=== PATIENT | female | born 1970 | race Caucasian/White ===

== ENCOUNTER 2016-07-07 18:03 | Emergency (ER) | payer BC ==
--- NOTE | 2016-07-07 18:36 | ERPHSYRPT ---
- History of Present Illness Time Seen by Provider: 07/07/16 18:25 Source: patient Exam Limitations: clinical condition Patient Subjective Stated Complaint: pt states she fell into a handrail on staircase this afternoon. pt c/o pain to right ribs. Triage Nursing Assessment: pt pink, warm, dry. mild swelling no bruising noted to right rib area. lung sounds clear and equal. 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 PATIENT COMPLAINS OF SEVERE RIGHT SIDED CHEST PAINS WORSE UPON INSPIRATION AND MOTION OF HER TORSO. DENIES ASSOCIATED HEAD, NECK OR BACK INJURY. Occurred: this evening Reason for Fall: lost balance, slipped Injuries/Pain Location: chest Loss of Consciousness: no loss of consciousness Quality: sharpness, stabbing Severity of Pain-Max: severe Severity of Pain-Current: severe Modifying Factors: Improves With: movement, other (INSPIRATION) Associated Symptoms (Fall): other (PAIN UPON INSPIRATION) Allergies/Adverse Reactions: nitroglycerin Allergy (Severe, Verified 07/07/16 18:22) LOW BP morphine Allergy (Mild, Verified 07/07/16 18:22) DOES NOT DO ANYTHING Home Medications: Venlafaxine HCl ER 37.5 mg [Effexor ER 37.5 MG] 37.5 mg PO DAILY 10/14/15 [History] Hx Tetanus, Diphtheria Vaccination/Date Given: Yes (up to date) Hx Influenza Vaccination/Date Given: No Hx Pneumococcal Vaccination/Date Given: No Immunizations Up to Date: Yes - Review of Systems Constitutional: No Fever, No Chills Eyes: No Symptoms Ears, Nose, & Throat: No Symptoms Respiratory: No Symptoms, No Cough, No Dyspnea Cardiac: Chest Pain, No Edema, No Syncope Abdominal/Gastrointestinal: No Symptoms, No Abdominal Pain, No Nausea, No Vomiting, No Diarrhea Genitourinary Symptoms: No Symptoms, No Dysuria Musculoskeletal: No Symptoms, No Back Pain, No Neck Pain Skin: No Symptoms, No Rash Neurological: No Dizziness, No Focal Weakness, No Sensory Changes Psychological: No Symptoms Endocrine: No Symptoms All Other Systems: Reviewed and Negative - Past Medical History Pertinent Past Medical History: Yes Neurological History: No Pertinent History ENT History: No Pertinent History Cardiac History: High Cholesterol Respiratory History: Other Endocrine Medical History: No Pertinent History Musculoskeletal History: Other GI Medical History: No Pertinent History History: No Pertinent History Psycho-Social History: No Pertinent History Female Reproductive Disorders: No Pertinent History Other Medical History: histiocytosis - NOT IN REMISSION - Past Surgical History Past Surgical History: Yes Neuro Surgical History: No Pertinent History Cardiac: No Pertinent History Respiratory: No Pertinent History, Other Gastrointestinal: No Pertinent History Genitourinary: No Pertinent History Musculoskeletal: No Pertinent History Female Surgical History: Tubal Ligation Other Surgical History: rremoval of rt rib - Social History Smoking Status: Current every day smoker How long have you smoked: 30 Exposure to second hand smoke: Yes Drug Use: none Patient Lives Alone: No - Female History Hx Last Menstrual Period: june 14 2016 Hx Now: No - Nursing Vital Signs Nursing Vital Signs: Initial Vital Signs Temperature 98.3 F Temperature Source Oral Pulse Rate 99 Respiratory Rate 16 Blood Pressure [Right Arm] 119/87 Pain Intensity 8 - [place] Coma Score Best Eye Response (Burak): (4) open spontaneously Best Verbal Response (Burak): (5) oriented Best Motor Response ([place]ands): (6) obeys commands Burak Total: 15 - Physical Exam General Appearance: mild distress Head Injury: no evidence of injury Eye Exam: PERRL/EOMI ENT Exam: airway nml Neck Exam: supple, full range of motion, normal inspection Respiratory/Chest Exam: chest tenderness (MARKED RIGHT LATERAL RIB TENDERNESS 5TH TO 8TH RIBS, NO CREPITUS OR ECCHYMOSIS) Cardiovascular Exam: normal heart sounds, regular rate/rhythm Gastrointestinal Exam: soft, normal bowel sounds Back Exam: normal inspection, normal range of motion Extremity Exam: normal inspection Peripheral Pulses: carotid (R): 2+, carotid (L): 2+, femoral (R): 2+, femoral (L ): 2+, dorsalis-pedis (R): 2+, dorsalis-pedis (L): 2+ Neurologic Exam: alert, oriented x 3 Skin Exam: normal color SpO2 Interpretation: normal SpO2: 98 Oxygen Delivery: Room Air - Radiology Exams Right Ribs X-ray Interpretation: Interpreted by me, Negative, No Fracture Chest X-ray Interpretation: Interpreted by me, Negative, No Fracture Ordered Tests: Active Orders 24 hr Category Date Time Status Blayne Bandage Application -[facility] STAT Care 07/07/16 18:27 Active Cold Application STAT Care 07/07/16 18:26 Active CHEST 2 VIEWS (PA AND LAT) Stat Exams 07/07/16 18:35 Taken RIBS UNILATERAL Stat Exams 07/07/16 18:25 Taken Medication Summary Generic Name Dose Route Start Last Admin Trade Name Ashlyn PRN Reason Stop Dose Admin Acetaminophen/Hydrocodone Bitart 2 tab 07/07/16 20:45 Tavernier 10/325 Mg Tablet PO 07/07/16 20:46 SENT HOME W/ PATIENT ONE Discontinued Medications Generic Name Dose Route Start Last Admin Trade Name Ashlyn PRN Reason Stop Dose Admin Hydromorphone HCl 1 mg 07/07/16 19:04 07/07/16 19:18 Hydromorphone 1 Mg/Ml Ampule IM 07/07/16 19:05 1 mg STAT ONE Administration Hydromorphone HCl Confirm 07/07/16 19:16 Hydromorphone 1 Mg/Ml Ampule Administered 07/07/16 19:17 Dose 1 mg .ROUTE .STK-MED ONE Promethazine HCl 25 mg 07/07/16 19:05 07/07/16 19:18 Phenergan 25 Mg Inj IM 07/07/16 19:06 25 mg STAT ONE Administration Promethazine HCl Confirm 07/07/16 19:16 Phenergan 25 Mg Inj Administered 07/07/16 19:17 Dose 25 mg .ROUTE .STK-MED ONE - Progress Progress: pain not gone completely Progress Note: 07/07/16 20:28 PATIENT GIVEN DILAUDID 1MG/PHENERGAN 25MG IM 07/07/16 20:30 Counseled pt/family regarding: diagnosis, need for follow-up - Departure Time of Disposition: 20:50 Departure Disposition: Home Clinical Impression: RIGHT CHEST WALL CONTUSIONS Condition: Stable Critical Care Time: No Referrals: SARIKA HERNANDEZ MD [Primary Care Provider] - Additional Instructions: FOLLOWUP WITH YOUR FAMILY PHYSICIAN FOR EVALUATION IN 1 WEEK. NORCO 10/325 EVERY 4 HOURS FOR PAIN NEEDED. Prescriptions: Hydrocodone/APAP 10/325 mg [Tavernier 10/325 MG Tablet] 1 tab PO Q4H PRN PRN # 20 tablet PRN Reason: Pain
[2016-07-07] MEDS ORDERED: Hydromorphone 1 mg/ml Ampule IM ONE (19:04)
[2016-07-07] MEDS ORDERED: Phenergan 25 MG INJ IM ONE (19:05)
[2016-07-07] MEDS ORDERED: Hydromorphone 1 mg/ml Ampule ONE (19:16)
[2016-07-07] MEDS ORDERED: Phenergan 25 MG INJ ONE (19:16)
[2016-07-07] MEDS ORDERED: Norco 10/325 MG Tablet PO ONE (20:45)
[2016-07-07] MEDS ORDERED: Norco 10/325 MG Tablet ONE (20:48)
[2016-07-07 20:56] VITALS: BP 148/100; PULSE 76; O2SAT 100
--- NOTE | 2016-07-08 08:47 | XRAY ---
Indication: Pain following fall. Comparison: May 18, 2012. 2 views of the right ribs again demonstrates right lung post surgical changes including 6th rib resection and overlying breast implant. No other bony, articular, or soft tissue abnormalities. Comment: Preliminary interpretation was made by [facility]. No critical discrepancy.
--- NOTE | 2016-07-08 08:49 | XRAY ---
Indication: Pain following fall. Comparison: July 02, 2015. PA/lateral chest again demonstrates right lung post surgical changes including 6th rib resection and bilateral breast implants. Heart is not enlarged. Bony thorax intact. No new/acute abnormalities. Comment: Preliminary interpretation was made by [facility]. No critical discrepancy.
== END 2016-07-07 20:56 | disposition home or self-care (01) ==
LOC: ED 18:03
DX: S20.211A Contusion of right front wall of thorax, initial encounter (principal)
CPT/HCPCS: 71020; 71100; 96372; 99284; J1170; J2550; A9270-GY